=== PATIENT | female | born 1930 | race Caucasian/White ===

== ENCOUNTER 2017-08-07 11:57 | Emergency (ER) | payer OTHER ==
[~2017-08-07] VITALS: Ht 165.1 cm; Wt 65.9 kg
[~2017-08-07 11:57] MED LIST: ASPIRIN EC325 MG PO; FEOSOL325 MG PO; FERROUS SULFAT325 M2 PO; HYDROCHLOROTHIA25 MG PO; Hydrodiuril,Oretic,E PO; Keflex PO; LIPITOR40 MG PO; LISINOPRIL10 MG PO; METOPROLOL SUCC50 MG PO; PLAVIX75 MG PO; PRINIVIL10 MG PO; PROTONIX40 MG PO; Protonix PO; SIMVASTATIN20 MG PO; TOPROL XL50 MG PO; Toprol XL PO; Tylenol Regular Stre PO; ZITHROMAX Z-PA250 MG PO; Zestril,Prinivil PO; Zocor PO
[2017-08-07 14:43] VITALS: BP 208/80
== END 2017-08-07 14:44 | disposition home or self-care (01) ==
LOC: EME 11:57
DX: S01.112A Laceration without foreign body of left eyelid and periocular area, initial encounter (principal); S02.40DA Maxillary fracture, left side, initial encounter for closed fracture; H11.32 Conjunctival hemorrhage, left eye; W01.0XXA Fall on same level from slipping, tripping and stumbling without subsequent striking against object, initial encounter; Y92.480 Sidewalk as the place of occurrence of the external cause; Z23 Encounter for immunization; I10 Essential (primary) hypertension; E78.5 Hyperlipidemia, unspecified; Z95.5 Presence of coronary angioplasty implant and graft; Z79.02 Long term (current) use of antithrombotics/antiplatelets
CPT/HCPCS: 70450; 99281; 99284

== ENCOUNTER 2018-04-07 14:56 | Emergency (ER) | payer OTHER ==
[~2018-04-07] VITALS: Ht 149.9 cm; Wt 62.1 kg
[2018-04-07 18:34] VITALS: BP 170/60
== END 2018-04-07 18:56 | disposition home or self-care (01) ==
LOC: EME 14:56
DX: M25.561 Pain in right knee (principal); I70.201 Unspecified atherosclerosis of native arteries of extremities, right leg; M17.11 Unilateral primary osteoarthritis, right knee; M22.2X1 Patellofemoral disorders, right knee; J98.11 Atelectasis; R91.8 Other nonspecific abnormal finding of lung field; I67.2 Cerebral atherosclerosis; M47.892 Other spondylosis, cervical region; I65.29 Occlusion and stenosis of unspecified carotid artery; I10 Essential (primary) hypertension; K21.9 Gastro-esophageal reflux disease without esophagitis; E78.5 Hyperlipidemia, unspecified; Z79.02 Long term (current) use of antithrombotics/antiplatelets; Z95.5 Presence of coronary angioplasty implant and graft; Z87.19 Personal history of other diseases of the digestive system; Z90.49 Acquired absence of other specified parts of digestive tract
CPT/HCPCS: 70450; 70486; 71045; 72170; 73564; 99281; 99283

== ENCOUNTER 2018-04-12 01:16 | Emergency (ER) | payer OTHER ==
[~2018-04-12] VITALS: Ht 160 cm; Wt 60.4 kg
[~2018-04-12 01:16] MED LIST changes: -FERROUS SULFAT325 M2 PO; +FERROUS SULFAT325 MG PO; -LISINOPRIL10 MG PO; +LISINOPRIL5 MG PO
[2018-04-12 04:43] VITALS: BP 126/59
[2018-04-12] MEDS ORDERED: SERTRALINE HCL100 MG PO (21:54)
[2018-04-12] MEDS ORDERED: MELATIN3 MG PO (21:55)
[2018-04-12] MEDS ORDERED: LOPRESSOR50 MG PO (21:56)
[2018-04-13] MEDS ORDERED: CHILD ASPIRIN81 M1 PO (01:04)
== END 2018-04-12 04:46 | disposition home or self-care (01) ==
LOC: EME → EDBD 01:16 → EME 04:46
DX: S00.83XA Contusion of other part of head, initial encounter (principal); W18.30XA Fall on same level, unspecified, initial encounter; Y92.099 Unspecified place in other non-institutional residence as the place of occurrence of the external cause; E78.5 Hyperlipidemia, unspecified; I10 Essential (primary) hypertension; K21.9 Gastro-esophageal reflux disease without esophagitis; Z95.5 Presence of coronary angioplasty implant and graft
CPT/HCPCS: 70450; 72125; 72170; 99281; 99283

== ENCOUNTER 2018-04-12 21:45 | Inpatient (IN) | payer OTHER ==
[~2018-04-12] VITALS: Ht 147.3 cm; Wt 61.9 kg
[2018-04-12] MEDS ORDERED: SERTRALINE HCL100 MG PO (21:54)
[2018-04-12] MEDS ORDERED: MELATIN3 MG PO (21:55)
[2018-04-12] MEDS ORDERED: LOPRESSOR50 MG PO (21:56)
[2018-04-12 23:06] LABS: BASOPHIL (%) 0.5 % (0-1); EOSINOPHIL (%) 1.7 % (0-5); EOSINOPHIL COUNT 0.1 K/uL (0-0.3); HEMATOCRIT 32.5 % (36.0-46.0); HEMOGLOBIN 11.2 G/DL (11.9-15.5); IMMATURE GRANULOCYTE (%) 0.2 % (0.0-0.7); LYMPHOCYTE (%) 16.2 % (15-42); LYMPHOCYTE COUNT 1.3 K/uL (1.0-2.8); MCH 31.1 PG (29.0-34.0); MCHC 34.5 G/DL (30.0-36.0); MCV 90.3 FL (83-99); MONOCYTE (%) 11.2 % (3-12); MONOCYTE COUNT 0.9 K/uL (0-0.8); NEUTROPHIL (%) 70.2 % (45-76); NEUTROPHIL COUNT 5.8 K/uL (1.8-6.4); PLATELET COUNT 285 K/uL (156-360); RBC DIS.WIDTH-CV 12.5 % (11.8-14.6); RBC DIS.WIDTH-SD 41.2 % (39-53); WHITE BLOOD COUNT 8.3 K/uL (4.1-10.2)
[2018-04-12 23:18] LABS: ALBUMIN 3.8 g/dL (3.2-4.8); CHLORIDE 102 mEq/L (99-109); POTASSIUM 2.9 mEq/L (3.7-5.4); SODIUM 139 mEq/L (136-147)
[2018-04-12 23:20] LABS: GLUCOSE 140 mg/dL (70-99); TOTAL PROTEIN 6.4 g/dL (6.4-8.3)
[2018-04-12 23:22] LABS: TOTAL BILIRUBIN 0.5 mg/dL (0.0-1.0)
[2018-04-12 23:24] LABS: ALKALINE PHOSPHATASE 79 IU/L (3-129); CREATININE 2.1 mg/dL (0.6-1.3); GFR ESTIMATE (CALCULATED) 24 mL/min/
[2018-04-12 23:25] LABS: AST (GOT) 16 IU/L (2-34); UREA NITROGEN (BUN) 30 mg/dL (9-23)
[2018-04-12 23:27] LABS: ALT (GPT) 10 IU/L (3-49)
[2018-04-12 23:33] LABS: TROP-I INTERPRETATION NEGATIVE; TROPONIN-I 0.04 ng/mL (0.0-0.30)
[2018-04-13] VITALS (7 sets, daily range): BP systolic 115–181; BP diastolic 52–98
[2018-04-13 00:38] LABS: APPEARANCE SL.HAZY ((CLEAR)); BILIRUBIN SMALL; BLOOD NEGATIVE; COLOR AMBER ((YELLOW)); GLUCOSE (STRIP) NEGATIVE; KETONES 5; LEUKOCYTES NEGATIVE; NITRITE NEGATIVE; PROTEIN (STRIP) 30; SPECIFIC GRAVITY 1.024 (1.000-1.030)
[2018-04-13 00:43] LABS: BACTERIA RARE /HPF; EPITHELIAL CELLS RARE /HPF; MUCUS 2+ /LPF; RED BLOOD CELLS 0-5 /HPF (0-5); UCUL ADDED? NO; WHITE BLOOD CELLS 0-5 /HPF (0-5)
[2018-04-13] MEDS ORDERED: CHILD ASPIRIN81 M1 PO (01:04)
[2018-04-13 06:28] LABS: CHLORIDE 108 MEQ/L (99-109); GFR ESTIMATE (CALCULATED) 38 mL/min/; GLUCOSE 108 mg/dL (70-99); POTASSIUM 3.4 MEQ/L (3.7-5.4); SODIUM 141 MEQ/L (136-147); UREA NITROGEN (BUN) 28 mg/dL (9-23)
[2018-04-13 06:34] LABS: CREATININE 1.4 MG/DL (0.6-1.3)
[2018-04-14 07:03] LABS: CHLORIDE 106 MEQ/L (99-109); GFR ESTIMATE (CALCULATED) > 59 mL/min/; GLUCOSE 126 mg/dL (70-99); POTASSIUM 3.1 MEQ/L (3.7-5.4); SODIUM 145 MEQ/L (136-147); UREA NITROGEN (BUN) 11 mg/dL (9-23)
[2018-04-14 07:04] LABS: CREATININE 0.7 MG/DL (0.6-1.3)
[2018-04-14 07:20] VITALS: BP 204/98
[2018-04-14 11:34] VITALS: BP 163/79
[2018-04-14 15:31] VITALS: BP 166/81
[2018-04-14 22:58] VITALS: BP 143/97
[2018-04-15 07:05] VITALS: BP 175/84
[2018-04-15 07:27] LABS: CHLORIDE 108 MEQ/L (99-109); CREATININE 0.8 MG/DL (0.6-1.3); GFR ESTIMATE (CALCULATED) > 59 mL/min/; GLUCOSE 155 mg/dL (70-99); SODIUM 144 MEQ/L (136-147); UREA NITROGEN (BUN) 18 mg/dL (9-23)
[2018-04-15 07:29] LABS: POTASSIUM 4.2 MEQ/L (3.7-5.4)
[2018-04-15 15:55] VITALS: BP 165/86
[2018-04-15 22:49] VITALS: BP 153/74
[2018-04-16 15:10] VITALS: BP 152/71
[2018-04-17 00:46] VITALS: BP 127/84
[2018-04-17 07:10] VITALS: BP 178/88
[2018-04-17] MEDS ORDERED: MORPHINE CON20 MG/M1 PO (09:29)
[2018-04-17] MEDS ORDERED: QUETIAPINE FUMA25 MG PO (09:29)
[2018-04-17] MEDS ORDERED: ATIVAN0.5 MG PO (09:29)
== END 2018-04-17 15:38 | disposition hospice, home (50) | DRG 683 ==
LOC: EME 21:45 → 5EAST 04-13 00:30 → EDOF 04-13 00:30 → ENRESERV 04-13 00:43 → 5EAST 04-13 01:40 → ENRESERV 04-13 15:26 → 5EAST 04-13 18:26 → ENPENDDIS 04-17 → 5EAST 04-17 15:38
PROVIDERS: Emergency Medicine; Internal Medicine
DX: N17.9 Acute kidney failure, unspecified (principal); F02.81 Dementia in other diseases classified elsewhere, unspecified severity, with behavioral disturbance; F05 Delirium due to known physiological condition; E87.6 Hypokalemia; R29.6 Repeated falls; G30.9 Alzheimer's disease, unspecified; I25.10 Atherosclerotic heart disease of native coronary artery without angina pectoris; I10 Essential (primary) hypertension; Z66 Do not resuscitate; Z51.5 Encounter for palliative care; R27.0 Ataxia, unspecified; Z95.5 Presence of coronary angioplasty implant and graft
CPT/HCPCS: 70450; 70486; 71046; 72125; 72170; 73564; 80048; 80053; 81003; 84484; 85025; 93005; 99281; 99283; 99285; J7030; J7042